=== PATIENT | male | born 2000 | race Hispanic/Latino ===

== ENCOUNTER 2023-08-27 08:10 | Day surgery (SDC) | payer MEDICAID ==
[~2023-08-27] VITALS: Ht 175.3 cm; Wt 54.4 kg
[2023-08-27] VITALS (12 sets, daily range): BP systolic 97–146; BP diastolic 62–82; PULSE 101–114; RESP 15–17
[~2023-08-27 08:10] MED LIST: 0.9%NACL 1000ML 1,000 ML IV ONE
[2023-08-27] MEDS ORDERED: PHEN26CR2 RC (08:43)
[2023-08-27] MEDS ORDERED: PROPOFOL 10 MG/ML 20ML VIAL IV ONE (09:48)
== END 2023-08-27 12:15 | disposition home or self-care (01) ==
LOC: DAH 08:10
PROVIDERS: ATTEND Internal Medicine Gastroenterology
DX: K92.1 Melena (principal); R63.4 Abnormal weight loss; K59.00 Constipation, unspecified; K64.4 Residual hemorrhoidal skin tags; K63.89 Other specified diseases of intestine; K29.70 Gastritis, unspecified, without bleeding; K22.89 Other specified disease of esophagus; Z21 Asymptomatic human immunodeficiency virus [HIV] infection status; Z68.1 Body mass index [BMI] 19.9 or less, adult; Z79.899 Other long term (current) drug therapy
CPT/HCPCS: 43239; 45378; J7030 ×2; J3490; A4620; A4215 ×2; A4223; A7002; A4222; A4221; A4663; A4606; J2704